=== PATIENT | female | born 1970 | race Hispanic/Latino ===

== ENCOUNTER → 2016-11-09 | Outpatient (CLI) | payer BC ==
--- NOTE | 2016-11-10 08:47 | Diagnostic Imaging Report ---
INDICATION: Screening mammogram. COMPARISON: 11/15/2013. TECHNIQUE: Digital screening mammography was obtained with a Computer Aided Detection (CAD) system. FINDINGS: Scattered fibroglandular densities are present. There is no mass or suspicious calcification. IMPRESSION: Stable screening mammogram. No malignancy. ACR BI-RADS Category 1: Negative. Result letter will be mailed to the patient. Note: At least 10% of breast cancer is not imaged by mammography. Dictated by: Dictated on workstation # [id number]
== END ==
LOC: RAD 10:54
PROVIDERS: ATTEND Family Medicine
DX: Z12.31 Encounter for screening mammogram for malignant neoplasm of breast (principal)